=== PATIENT | female | born 1985 ===

== ENCOUNTER 2016-12-21 17:26 | Emergency (ER) | payer OTHER ==
[2016-12-21 20:25] LABS: Hematocrit 39 % (35-47); Hemoglobin 13.1 g/dl (12.0-16.0); Mean Corpuscular HGB Conc 34 g/dl (31-36); Mean Corpuscular Hemoglobin 32 pg (27-31); Mean Corpuscular Volume 95 fL (80-97); Mean Platelet Volume 10 um3 (7.4-10.4); Red Cell Distribution Width 13 % (10.5-15); White Blood Count 6.7 10^3/ul (3.5-10.8)
[2016-12-21] MEDS ORDERED: NS 0.9% 1000 ML* 1,000 ML IV ONE (20:28)
[2016-12-21] MEDS ORDERED: Ondansetron INJ* 2 MG/ML VIAL IV ONE ×2 (20:28→23:42)
[2016-12-21] MEDS ORDERED: Ondansetron INJ* 2 MG/ML VIAL ONE (20:29)
[2016-12-21 20:40] LABS: ALT 19 U/L (7-52); AST 22 U/L (13-39); Albumin 4.7 g/dL (3.2-5.2); Alkaline Phosphatase 38 U/L (34-104); Amylase 142 U/L (29-103); BUN/Creatinine Ratio 15.4 (8-20); Blood Urea Nitrogen 12 mg/dL (6-24); CO2 Carbon Dioxide 24 mmol/L (22-32); Calcium 9.3 mg/dL (8.6-10.3); EGFR African American 109.4 (>60); EGFR Non-African American 85.1 (>60); Globulin 2.7 g/dL (2-4); Glucose 131 mg/dL (70-100); Lipase < 10 U/L (11.0-82.0); Total Protein 7.4 g/dL (6.4-8.9)
[2016-12-21] MEDS ORDERED: Metoclopramide IV* 5 MG/ML 2 ML VIAL IV ONE (20:47)
[2016-12-21 20:48] LABS: Anion Gap 11 mmol/L (2-11); Chloride 104 mmol/L (101-111); Potassium 3.2 mmol/L (3.5-5.0); Sodium 139 mmol/L (133-145)
[2016-12-21] MEDS ORDERED: Iohexol 300* (CONTRAST) 10 ML SDV IV ONE (20:51)
--- NOTE | 2016-12-21 20:56 | ED ---
Miroslava Espinosa Thomas, scribed for René Byrne MD on 12/21/16 at 2054 . Abdominal Pain/Female - HPI Summary HPI Summary: The pt is a 31 y/o F presenting to the ED with abd pain. She additionally c/o sore throat, MCINTYRE, and N/V. Her Sx began yesterday with the exception of her abd pain, which began today. She denies diarrhea. - History of Current Complaint Chief Complaint: EDGeneral Stated Complaint: VOMITING/NAUSEA/WEAK Time Seen by Provider: 12/21/16 20:44 Hx Obtained From: Patient Onset/Duration: Lasting Days - onset today, Still Present Timing: Constant Severity Currently: Severe Pain Intensity: 10 Pain Scale Used: 0-10 Numeric Associated Signs and Symptoms: Positive: Nausea, Vomiting, Other: - POS: sore throat, MCINTYRE. Negative: Diarrhea Allergies/Adverse Reactions: Allergies Allergy/AdvReac Type Severity Reaction Status Date / Time No Known Allergies Allergy Verified 12/21/16 17:44 PMH/Surg Hx/FS Hx/Imm Hx Previously Healthy: Yes Endocrine/Hematology History: Denies: Hx Diabetes Cardiovascular History: Denies: Hx Congestive Heart Failure Infectious Disease History: No Infectious Disease History: Denies: Traveled Outside the [place] in Last 30 Days - Family History Known Family History: Negative: Cardiac Disease, Diabetes - Social History Alcohol Use: None Substance Use Type: Reports: None Smoking Status (MU): Never Smoked Tobacco Review of Systems Constitutional: Negative Eyes: Negative Positive: Sore Throat Cardiovascular: Negative Respiratory: Negative Positive: Abdominal Pain - onset today, Vomiting - onset yesterday, Nausea - onset yesterday. Negative: Diarrhea Genitourinary: Negative Musculoskeletal: Negative Skin: Negative Positive: Headache Psychological: Normal All Other Systems Reviewed And Are Negative: Yes Physical Exam Triage Information Reviewed: Yes Vital Signs On Initial Exam: Initial Vitals Temp Pulse Resp BP Pulse Ox 98.6 F 89 17 107/69 93 12/21/16 17:41 12/21/16 17:41 12/21/16 17:41 12/21/16 17:41 12/21/16 17:41 Vital Signs Reviewed: Yes Appearance: Positive: Pain Distress - mild discomfort, Thin Skin: Positive: Skin Color Reflects Adequate Perfusion, Pale Head/Face: Positive: Normal Head/Face Inspection Eyes: Positive: EOMI, MELVINA ENT: Positive: Hearing grossly normal Neck: Positive: Supple Respiratory/Lung Sounds: Positive: Clear to Auscultation, Breath Sounds Present Cardiovascular: Positive: RRR Abdomen Description: Positive: Soft, Other: - mild diffuse abd tenderness. Negative: Distended, Guarding Musculoskeletal: Positive: Strength/ROM Intact Neurological: Positive: Alert, Oriented to Person Place, Time - Ene Coma Scale Coma Scale Total: 15 Diagnostics - Vital Signs Vital Signs Temp Pulse Resp BP Pulse Ox 12/21/16 19:55 100.2 F 62 14 102/70 95 12/21/16 17:43 98.5 F 89 17 107/69 100 12/21/16 17:41 98.6 F 89 17 107/69 93 - Laboratory Lab Results: Lab Results 12/21/16 12/21/16 12/21/16 Range/Units 19:47 19:47 19:47 WBC 6.7 (3.5-10.8) 10^3/ul RBC 4.10 (4.0-5.4) 10^6/ul Hgb 13.1 (12.0-16.0) g/dl Hct 39 (35-47) % MCV 95 (80-97) fL MCH 32 H (27-31) pg MCHC 34 (31-36) g/dl RDW 13 (10.5-15) % Plt Count 140 L (150-450) 10^3/ul MPV 10 (7.4-10.4) um3 Neut % (Auto) 85.5 H (38-83) % Lymph % (Auto) 9.1 L (25-47) % [place] % (Auto) 5.0 (1-9) % Eos % (Auto) 0.1 (0-6) % Baso % (Auto) 0.3 (0-2) % Absolute Neuts (auto) 5.7 (1.5-7.7) 10^3/ul Absolute Lymphs (auto) 0.6 L (1.0-4.8) 10^3/ul Absolute Monos (auto) 0.3 (0-0.8) 10^3/ul Absolute Eos (auto) 0 (0-0.6) 10^3/ul Absolute Basos (auto) 0 (0-0.2) 10^3/ul Absolute Nucleated RBC 0 10^3/ul Nucleated RBC % 0 Sodium Pending Potassium Pending Chloride Pending Carbon Dioxide 24 (22-32) mmol/L Anion Gap Pending BUN 12 (6-24) mg/dL Creatinine 0.78 (0.51-0.95) mg/dL Est GFR ( Amer) 109.4 (>60) Est GFR (Non-Af Amer) 85.1 (>60) BUN/Creatinine Ratio 15.4 (8-20) Glucose 131 H (70-100) mg/dL Lactic Acid 1.6 (0.5-2.0) mmol/L Calcium 9.3 (8.6-10.3) mg/dL Total Bilirubin 1.50 H (0.2-1.0) mg/dL AST 22 (13-39) U/L ALT 19 (7-52) U/L Alkaline Phosphatase 38 (34-104) U/L Total Protein 7.4 (6.4-8.9) g/dL Albumin 4.7 (3.2-5.2) g/dL Globulin 2.7 (2-4) g/dL Albumin/Globulin Ratio 1.7 (1-3) Amylase 142 H (29-103) U/L Lipase < 10 L (11.0-82.0) U/L Result Diagrams: 12/21/16 19:47 12/21/16 19:47 Lab Statement: Any lab studies that have been ordered have been reviewed, and results considered in the medical decision making process. - CT CT Abd/Pel CT Interpretation: No Acute Changes - 1. Suggestion of a 1.4 cm potential although not definitive lesion at the RIGHT anterior hepatic segment conspicuous only on the portal venous phase series. The lesion is denser than typical for a hepatic cyst. Consider hepatic ultrasound for further assessment. 2. Negative for biliary dilatation. No CT evidence for acute pancreatitis. 3. Normal appendix documented. 4. Negative for bowel obstruction. CT Interpretation Completed By: Radiologist Re-Evaluation - Re-Evaluation First Eval Re-Evaluation Time: 23:27 Change: Improved - feels better, tolerating po Abdominal Pain Fem Course/Dx - Diagnoses Provider Diagnoses: Abdominal pain, Nausea & vomiting Discharge - Discharge Plan Condition: Improved Disposition: HOME Patient Education Materials: Abdominal Pain (ED), Acute Nausea and Vomiting (ED ) Print Language: TURKISH Referrals: [facility] [Primary Care Provider] - 3 Days The documentation as recorded by the Miroslava newton Thomas accurately reflects the service I personally performed and the decisions made by me, René Byrne MD.
--- NOTE | 2016-12-21 23:18 | RAD ---
INDICATION: Abdominal pain, vomiting, jaundice. COMPARISON: No relevant prior exams available on the [facility] PACS for comparison. TECHNIQUE: Multidetector CT images were obtained from the lung bases to the ischial tuberosities with 72 mL Omnipaque 300 IV and oral contrast. Multiplanar reformation. REPORT: Unremarkable visualized inferior thorax. Conspicuous only on the portal venous phase series there is a 1.4 cm hypodense lesion at the RIGHT anterior hepatic segment reference image 18. This region becomes isodense on the delayed phase series. Negative for biliary dilatation. No CT abnormality of the gallbladder. Unremarkable pancreas and spleen. Negative for CT abnormality of the upper GI or small bowel. Normal appendix is visualized extending cephalad from the cecum most conspicuous on axial images 56-62 and coronal reformatted images 28-73. Unremarkable colon. Physiologic small volume of free fluid in the cul-de-sac. Negative for free air or hernias. Normal adrenal glands. Unremarkable kidneys with symmetric nephrograms and pyelograms. No suspicious finding along the course of the nondilated ureters. Multiple pelvic phleboliths noted. Largely decompressed urinary bladder without gross abnormality. Unremarkable retroverted uterus and adnexal regions. Negative for lymphadenopathy. Normal diameter abdominal aorta and iliac arteries. Physiologic distention of the IVC. Negative for suspicious osseous lesions. [place] images saved on the [facility] PACS. IMPRESSION: 1. Suggestion of a 1.4 cm potential although not definitive lesion at the RIGHT anterior hepatic segment conspicuous only on the portal venous phase series. The lesion is denser than typical for a hepatic cyst. Consider hepatic ultrasound for further assessment. 2. Negative for biliary dilatation. No CT evidence for acute pancreatitis. 3. Normal appendix documented. 4. Negative for bowel obstruction.
[2016-12-22 00:28] VITALS: BP 100/60
== END 2016-12-21 23:50 | disposition home or self-care (01) ==
LOC: ED 17:26
DX: R10.9 Unspecified abdominal pain (principal); R11.2 Nausea with vomiting, unspecified; J02.9 Acute pharyngitis, unspecified; R51 Headache
CPT/HCPCS: 36415; 74177; 80053; 82150; 83605; 83690; 84702; 85025; 96374; 96375; 99282; J2405; Q9967